=== PATIENT | male | born 1950 | race Caucasian/White ===

== ENCOUNTER 2022-05-13 14:28 | Inpatient (IN) ==
[2022-05-13] MEDS ORDERED: Al Hydrox/Mg Hydrox/Simet LIQ 30 ML UDC PO PRN (21:23)
[2022-05-14] MEDS: Carbidopa/Levodop 25/100 MG TAB PO SCH ×4 (01:11→16:05)
[2022-05-14 08:03] LABS: ABS Eosinophils 0.1 10^3/ul (0-0.6); ABS Lymphocytes 1.2 10^3/ul (1.0-4.8); ABS Monocytes 0.5 10^3/ul (0-0.8); ABS Neutrophils 3.2 10^3/ul (1.5-7.7); Eosinophil % 1.4 %; Hematocrit 44 % (42-52); Hemoglobin 14.6 g/dL (14.0-18.0); Lymphocyte % 24.3 %; Mean Corpuscular HGB Conc 33 g/dL (31-36); Mean Corpuscular Hemoglobin 31 pg (27-31); Mean Corpuscular Volume 93 fL (80-94); Mean Platelet Volume 8.2 fL (7.4-10.4); Platelet Count 204 10^3/uL (150-450); Red Blood Count 4.77 10^6 /uL (4.18-5.48); Red Cell Distribution Width 14 % (10-15)
[2022-05-14 08:36] LABS: Calcium 9.7 mg/dL (8.6-10.3); HDL Cholesterol 55.8 mg/dL; Potassium 3.8 mmol/L (3.5-5.0); eGFR CKD-EPI 65.3 (>60)
[2022-05-14 08:51] LABS: TSH Ultra Thyroid Stim Horm 6.29 mcIU/mL (0.34-5.60)
[2022-05-14] MEDS: PTO: Dorzolamide/Timolol OPTH (NF) 10 ML BOT BOTH EYES SCH ×2 (10:07→20:37)
[2022-05-14] MEDS: Vitamin THERAPEUTIC TAB PO SCH (10:11)
[2022-05-14] MEDS ORDERED: EYE BOTH EYES SCH (21:00)
[2022-05-14] MEDS ORDERED: LUMIGAN 0.01% BOTH EYES SCH (21:00)
[2022-05-15] MEDS: Carbidopa/Levodop 25/100 MG TAB PO SCH ×3 (07:30→16:26)
[2022-05-15] MEDS: Vitamin THERAPEUTIC TAB PO SCH (10:46)
[2022-05-15] MEDS: PTO: Dorzolamide/Timolol OPTH (NF) 10 ML BOT BOTH EYES SCH ×3 (11:57→20:53)
[2022-05-15] MEDS: EYE BOTH EYES SCH (13:15)
[2022-05-15] MEDS: LUMIGAN 0.01% BOTH EYES SCH (13:15)
[2022-05-16] MEDS: Carbidopa/Levodop 25/100 MG TAB PO SCH ×3 (07:49→16:33)
[2022-05-16] MEDS: Vitamin THERAPEUTIC TAB PO SCH (07:50)
[2022-05-16] MEDS: LUMIGAN 0.01% BOTH EYES SCH (07:50)
[2022-05-16] MEDS: EYE BOTH EYES SCH (07:50)
[2022-05-16] MEDS: PTO: Dorzolamide/Timolol OPTH (NF) 10 ML BOT BOTH EYES SCH ×2 (08:16→21:00)
[2022-05-17] MEDS: Carbidopa/Levodop 25/100 MG TAB PO SCH ×2 (07:02→11:59)
[2022-05-17] MEDS: EYE BOTH EYES SCH (07:04)
[2022-05-17] MEDS: LUMIGAN 0.01% BOTH EYES SCH (07:04)
[2022-05-17] MEDS: PTO: Dorzolamide/Timolol OPTH (NF) 10 ML BOT BOTH EYES SCH (07:18)
[2022-05-17] MEDS: Vitamin THERAPEUTIC TAB PO SCH (07:22)
[2022-05-17 11:01] VITALS: BP 117/62
== END 2022-05-17 13:15 | disposition home or self-care (01) | DRG 57 ==
LOC: ED 14:28 → BSU 21:35
PROVIDERS: ADMIT Emergency Medicine; ATTEND Psychiatry & Neurology Psychiatry

== ENCOUNTER 2022-09-07 21:14 | Inpatient (IN) ==
[2022-09-07 21:41] LABS: ABS Lymphocytes 0.5 10^3/ul (1.0-4.8); ABS Monocytes 0.5 10^3/ul (0-0.8); ABS Neutrophils 5.1 10^3/ul (1.5-7.7); Eosinophil % 0.4 %; Hematocrit 39 % (42-52); Hemoglobin 13.3 g/dL (14.0-18.0); Lymphocyte % 7.8 %; Mean Corpuscular HGB Conc 34 g/dL (31-36); Mean Corpuscular Hemoglobin 31 pg (27-31); Mean Corpuscular Volume 91 fL (80-94); Mean Platelet Volume 7.9 fL (7.4-10.4); Nucleated Red Blood Cells % 0.1; Platelet Count 187 10^3/uL (150-450); Red Blood Count 4.34 10^6 /uL (4.18-5.48); Red Cell Distribution Width 13 % (10-15); White Blood Count 6.2 10^3/uL (3.5-10.8)
[2022-09-07 22:13] LABS: ALT 17 U/L (7-52); AST 31 U/L (13-39); Albumin 3.6 g/dL (3.2-5.2); Albumin/Globulin Ratio 1.6 (1-3); Alkaline Phosphatase 50 U/L (35-149); Anion Gap 8 mmol/L (2-11); Blood Urea Nitrogen 37 mg/dL (6-24); CO2 Carbon Dioxide 29 mmol/L (22-32); Calcium 9.3 mg/dL (8.6-10.3); Chloride 105 mmol/L (101-111); Creatine Kinase 536 U/L (10-223); Creatinine, Serum 0.94 mg/dL (0.67-1.17); Globulin 2.3 g/dL (2-4); Glucose 99 mg/dL (70-100); Potassium 4.1 mmol/L (3.5-5.0); Sodium 142 mmol/L (135-145); Total Protein 5.9 g/dL (6.4-8.9); eGFR CKD-EPI 86.7 (>60)
[2022-09-07 22:59] LABS: Alcohol, S < 13 mg/dL (<13)
[2022-09-08] MEDS ORDERED: LORazepam 2 mg VIAL 1 ml IM ONE (02:12)
[2022-09-08] MEDS ORDERED: Lorazepam PYXIS KEY PRN (02:12)
[2022-09-08] MEDS ORDERED: LORazepam 2 mg VIAL 1 ml ONE (02:15)
[2022-09-08 09:48] LABS: ABS Lymphocytes 0.4 10^3/ul (1.0-4.8); ABS Monocytes 0.5 10^3/ul (0-0.8); ABS Neutrophils 3.9 10^3/ul (1.5-7.7); Eosinophil % 0.2 %; Hematocrit 40 % (42-52); Hemoglobin 12.9 g/dL (14.0-18.0); Lymphocyte % 8.2 %; Mean Corpuscular HGB Conc 33 g/dL (31-36); Mean Corpuscular Hemoglobin 30 pg (27-31); Mean Corpuscular Volume 92 fL (80-94); Mean Platelet Volume 7.7 fL (7.4-10.4); Platelet Count 180 10^3/uL (150-450); Red Blood Count 4.31 10^6 /uL (4.18-5.48); Red Cell Distribution Width 13 % (10-15); White Blood Count 4.9 10^3/uL (3.5-10.8)
[2022-09-08 10:28] LABS: Albumin 3.6 g/dL (3.2-5.2); Albumin/Globulin Ratio 1.8 (1-3); Calcium 8.9 mg/dL (8.6-10.3); Creatinine, Serum 0.88 mg/dL (0.67-1.17); Total Protein 5.6 g/dL (6.4-8.9); eGFR CKD-EPI 91.9 (>60)
[2022-09-08 11:16] LABS: Urine Appearance Clear; Urine Bilirubin Negative (Negative); Urine Blood 1+ (Negative); Urine Color Yellow; Urine Glucose Negative (Negative); Urine Ketones 1+ (Negative); Urine Nitrite Negative (Negative); Urine Protein Negative (Negative); Urine Specific Gravity 1.019 (1.002-1.030); Urine Urobilinogen Negative (Negative)
[2022-09-08 11:23] LABS: Urine Bacteria Absent (Absent); Urine Red Blood Cell 2+(6-10/hpf) (Absent); Urine White Blood Cell Trace(0-5/hpf) (Absent)
[2022-09-08] MEDS ORDERED: Lactated Ringers 1000 ml BAG 1,000 ML IV ONE (11:29)
[2022-09-08 11:59] LABS: Urine Benzodiazepine Screen None Detected (None Detect); Urine Cannabinoids Screen None Detected (None Detect); Urine Opiates Screen None Detected (None Detect)
[2022-09-08] MEDS ORDERED: Carbidopa/Levodop 25/100 MG TAB PO ONE (13:05)
[2022-09-08] MEDS ORDERED: Ondansetron 4 mg VIAL 2 MG/ML 2 ml VIAL IV PRN (15:55)
[2022-09-08] MEDS: Carbidopa/Levodop 25/100 MG TAB PO SCH (19:58)
[2022-09-08] MEDS ORDERED: Carbidopa/Levodop 25/100 MG TAB PO SCH (21:00)
[2022-09-08] MEDS: Heparin 5000 UNITS/ML 1 mL VIAL SUBCUT SCH (22:42)
[2022-09-09] MEDS ORDERED: Lorazepam PYXIS KEY PRN (06:07)
[2022-09-09] MEDS ORDERED: LORazepam 2 mg VIAL 1 ml IV PUSH ONE (06:07)
[2022-09-09] MEDS ORDERED: PIMAVANSERIN 34 MG PO SCH (09:00)
[2022-09-09] MEDS: Heparin 5000 UNITS/ML 1 mL VIAL SUBCUT SCH ×2 (10:11→21:26)
[2022-09-09] MEDS: Carbidopa/Levodop 25/100 MG TAB PO SCH ×3 (11:34→16:31)
[2022-09-10] MEDS: Carbidopa/Levodop 25/100 MG TAB PO SCH ×3 (07:13→17:04)
[2022-09-10] MEDS: Heparin 5000 UNITS/ML 1 mL VIAL SUBCUT SCH ×2 (10:20→21:39)
[2022-09-10] MEDS: PIMAVANSERIN 34 MG PO SCH (10:22)
[2022-09-10] MEDS: Latanoprost 0.005% 2.5 ml BTL BOTH EYES SCH (21:41)
[2022-09-11 07:35] LABS: Calcium 8.5 mg/dL (8.6-10.3); Creatinine, Serum 0.84 mg/dL (0.67-1.17); Potassium 3.5 mmol/L (3.5-5.0); eGFR CKD-EPI 93.2 (>60)
[2022-09-11] MEDS: Carbidopa/Levodop 25/100 MG TAB PO SCH ×3 (07:36→16:57)
[2022-09-11] MEDS: CMCS: Dorzolamide/Timolol OPTH (NF) 10 ML BOT BOTH EYES SCH (09:39)
[2022-09-11] MEDS: PIMAVANSERIN 34 MG PO SCH (09:39)
[2022-09-11] MEDS: Heparin 5000 UNITS/ML 1 mL VIAL SUBCUT SCH ×2 (09:39→19:49)
[2022-09-11] MEDS ORDERED: LORazepam 2 mg VIAL 1 ml IV PUSH ONE (14:22)
[2022-09-11] MEDS ORDERED: Lorazepam PYXIS KEY PRN (14:22)
[2022-09-11] MEDS: Latanoprost 0.005% 2.5 ml BTL BOTH EYES SCH (19:51)
[2022-09-12] MEDS: CMCS: Dorzolamide/Timolol OPTH (NF) 10 ML BOT BOTH EYES SCH (08:07)
[2022-09-12] MEDS: Carbidopa/Levodop 25/100 MG TAB PO SCH ×3 (08:07→16:08)
[2022-09-12] MEDS: PIMAVANSERIN 34 MG PO SCH (08:08)
[2022-09-12] MEDS: Heparin 5000 UNITS/ML 1 mL VIAL SUBCUT SCH ×2 (08:08→21:00)
[2022-09-12] MEDS ORDERED: NS 0.9% 1000 ml BAG 1,000 ML IV SCH (09:00)
[2022-09-12] MEDS ORDERED: Lorazepam PYXIS KEY PRN (20:55)
[2022-09-12] MEDS ORDERED: LORazepam 2 mg VIAL 1 ml IV PUSH PRN (20:55)
[2022-09-12] MEDS: Latanoprost 0.005% 2.5 ml BTL BOTH EYES SCH (21:00)
[2022-09-13] MEDS: Carbidopa/Levodop 25/100 MG TAB PO SCH ×3 (08:34→17:24)
[2022-09-13] MEDS: CMCS: Dorzolamide/Timolol OPTH (NF) 10 ML BOT BOTH EYES SCH (08:35)
[2022-09-13] MEDS: Heparin 5000 UNITS/ML 1 mL VIAL SUBCUT SCH ×2 (08:35→19:31)
[2022-09-13] MEDS: PIMAVANSERIN 34 MG PO SCH (08:35)
[2022-09-13 09:48] LABS: ABS Lymphocytes 0.5 10^3/ul (1.0-4.8); ABS Monocytes 0.5 10^3/ul (0-0.8); ABS Neutrophils 3.6 10^3/ul (1.5-7.7); Hematocrit 39 % (42-52); Hemoglobin 13.1 g/dL (14.0-18.0); Lymphocyte % 10.9 %; Mean Corpuscular HGB Conc 33 g/dL (31-36); Mean Corpuscular Hemoglobin 30 pg (27-31); Mean Corpuscular Volume 91 fL (80-94); Mean Platelet Volume 8.2 fL (7.4-10.4); Platelet Count 203 10^3/uL (150-450); Red Blood Count 4.32 10^6 /uL (4.18-5.48); Red Cell Distribution Width 14 % (10-15); White Blood Count 4.6 10^3/uL (3.5-10.8)
[2022-09-13 10:25] LABS: Calcium 8.7 mg/dL (8.6-10.3); Potassium 4.3 mmol/L (3.5-5.0); eGFR CKD-EPI 80.5 (>60)
[2022-09-14] MEDS: Latanoprost 0.005% 2.5 ml BTL BOTH EYES SCH ×2 (00:36→20:33)
[2022-09-14] MEDS: Carbidopa/Levodop 25/100 MG TAB PO SCH ×3 (08:25→17:39)
[2022-09-14] MEDS: CMCS: Dorzolamide/Timolol OPTH (NF) 10 ML BOT BOTH EYES SCH (08:26)
[2022-09-14] MEDS: Heparin 5000 UNITS/ML 1 mL VIAL SUBCUT SCH ×2 (08:26→20:33)
[2022-09-14] MEDS: PIMAVANSERIN 34 MG PO SCH (08:28)
[2022-09-14] MEDS ORDERED: LORazepam 2 mg VIAL 1 ml IV PUSH PRN (17:16)
[2022-09-15] MEDS: Heparin 5000 UNITS/ML 1 mL VIAL SUBCUT SCH ×3 (08:31→20:31)
[2022-09-15] MEDS: CMCS: Dorzolamide/Timolol OPTH (NF) 10 ML BOT BOTH EYES SCH ×3 (08:32→11:42)
[2022-09-15] MEDS: Carbidopa/Levodop 25/100 MG TAB PO SCH ×3 (08:33→18:05)
[2022-09-15] MEDS: PIMAVANSERIN 34 MG PO SCH (08:35)
[2022-09-15] MEDS: Latanoprost 0.005% 2.5 ml BTL BOTH EYES SCH (20:30)
[2022-09-16 01:09] LABS: Urine Appearance Clear; Urine Bilirubin Negative (Negative); Urine Blood 2+ (Negative); Urine Color Yellow; Urine Glucose Negative (Negative); Urine Ketones Negative (Negative); Urine Nitrite Negative (Negative); Urine Protein Negative (Negative); Urine Specific Gravity 1.016 (1.002-1.030); Urine Urobilinogen Negative (Negative)
[2022-09-16 01:49] LABS: Urine Bacteria Absent (Absent); Urine Red Blood Cell 3+(>10/hpf) (Absent); Urine White Blood Cell Trace(0-5/hpf) (Absent)
[2022-09-16] MEDS: Heparin 5000 UNITS/ML 1 mL VIAL SUBCUT SCH ×2 (09:07→20:41)
[2022-09-16] MEDS: Carbidopa/Levodop 25/100 MG TAB PO SCH ×3 (09:09→18:03)
[2022-09-16] MEDS: PIMAVANSERIN 34 MG PO SCH (09:11)
[2022-09-16] MEDS: CMCS: Dorzolamide/Timolol OPTH (NF) 10 ML BOT BOTH EYES SCH (09:11)
[2022-09-16] MEDS ORDERED: Magnesium Hydroxide LIQ 30 ML UDC PO PRN (10:00)
[2022-09-16] MEDS: Polyethylene Glycol 3350 17 GM PACKET PO SCH (10:30)
[2022-09-16] MEDS: Senna TAB 8.6 mg TAB PO SCH (20:37)
[2022-09-16] MEDS: Latanoprost 0.005% 2.5 ml BTL BOTH EYES SCH (20:43)
[2022-09-17 05:44] LABS: ABS Eosinophils 0.1 10^3/ul (0-0.6); ABS Lymphocytes 0.9 10^3/ul (1.0-4.8); ABS Monocytes 0.8 10^3/ul (0-0.8); ABS Neutrophils 4.5 10^3/ul (1.5-7.7); Eosinophil % 1.3 %; Hematocrit 41 % (42-52); Hemoglobin 13.3 g/dL (14.0-18.0); Lymphocyte % 13.9 %; Mean Corpuscular HGB Conc 33 g/dL (31-36); Mean Corpuscular Hemoglobin 30 pg (27-31); Mean Corpuscular Volume 92 fL (80-94); Mean Platelet Volume 8.2 fL (7.4-10.4); Platelet Count 242 10^3/uL (150-450); Red Blood Count 4.42 10^6 /uL (4.18-5.48); Red Cell Distribution Width 14 % (10-15); White Blood Count 6.2 10^3/uL (3.5-10.8)
[2022-09-17 06:11] LABS: Creatinine, Serum 0.82 mg/dL (0.67-1.17); Potassium 4.2 mmol/L (3.5-5.0); eGFR CKD-EPI 93.9 (>60)
[2022-09-17] MEDS: Heparin 5000 UNITS/ML 1 mL VIAL SUBCUT SCH ×2 (07:30→20:28)
[2022-09-17] MEDS: PIMAVANSERIN 34 MG PO SCH (07:30)
[2022-09-17] MEDS: CMCS: Dorzolamide/Timolol OPTH (NF) 10 ML BOT BOTH EYES SCH (07:30)
[2022-09-17] MEDS: Polyethylene Glycol 3350 17 GM PACKET PO SCH (07:30)
[2022-09-17] MEDS: Carbidopa/Levodop 25/100 MG TAB PO SCH ×3 (07:31→16:29)
[2022-09-17] MEDS: Latanoprost 0.005% 2.5 ml BTL BOTH EYES SCH (20:28)
[2022-09-17] MEDS: Senna TAB 8.6 mg TAB PO SCH (20:28)
[2022-09-18] MEDS: Polyethylene Glycol 3350 17 GM PACKET PO SCH (08:36)
[2022-09-18] MEDS: Carbidopa/Levodop 25/100 MG TAB PO SCH ×3 (08:36→16:43)
[2022-09-18] MEDS: PIMAVANSERIN 34 MG PO SCH (08:36)
[2022-09-18] MEDS: CMCS: Dorzolamide/Timolol OPTH (NF) 10 ML BOT BOTH EYES SCH (08:37)
[2022-09-18] MEDS: Heparin 5000 UNITS/ML 1 mL VIAL SUBCUT SCH ×2 (08:38→21:53)
[2022-09-18] MEDS: Senna TAB 8.6 mg TAB PO SCH (21:53)
[2022-09-18] MEDS: Latanoprost 0.005% 2.5 ml BTL BOTH EYES SCH (21:54)
[2022-09-19] MEDS: CMCS: Dorzolamide/Timolol OPTH (NF) 10 ML BOT BOTH EYES SCH (09:11)
[2022-09-19] MEDS: Polyethylene Glycol 3350 17 GM PACKET PO SCH (09:11)
[2022-09-19] MEDS: Carbidopa/Levodop 25/100 MG TAB PO SCH ×3 (09:12→17:36)
[2022-09-19] MEDS: PIMAVANSERIN 34 MG PO SCH (09:12)
[2022-09-19] MEDS: Heparin 5000 UNITS/ML 1 mL VIAL SUBCUT SCH ×2 (09:13→20:42)
[2022-09-19] MEDS: Senna TAB 8.6 mg TAB PO SCH (20:41)
[2022-09-19] MEDS: Latanoprost 0.005% 2.5 ml BTL BOTH EYES SCH (20:42)
[2022-09-20] MEDS: Heparin 5000 UNITS/ML 1 mL VIAL SUBCUT SCH ×2 (08:01→20:35)
[2022-09-20] MEDS: CMCS: Dorzolamide/Timolol OPTH (NF) 10 ML BOT BOTH EYES SCH (08:01)
[2022-09-20] MEDS: Carbidopa/Levodop 25/100 MG TAB PO SCH ×3 (08:01→16:51)
[2022-09-20] MEDS: PIMAVANSERIN 34 MG PO SCH (08:02)
[2022-09-20] MEDS: Polyethylene Glycol 3350 17 GM PACKET PO SCH (08:09)
[2022-09-20] MEDS: Senna TAB 8.6 mg TAB PO SCH (20:35)
[2022-09-20] MEDS: Latanoprost 0.005% 2.5 ml BTL BOTH EYES SCH (20:49)
[2022-09-21] MEDS: Polyethylene Glycol 3350 17 GM PACKET PO SCH ×2 (07:58→18:55)
[2022-09-21] MEDS: CMCS: Dorzolamide/Timolol OPTH (NF) 10 ML BOT BOTH EYES SCH (07:58)
[2022-09-21] MEDS: PIMAVANSERIN 34 MG PO SCH (07:58)
[2022-09-21] MEDS: Heparin 5000 UNITS/ML 1 mL VIAL SUBCUT SCH ×2 (07:58→22:23)
[2022-09-21] MEDS: Carbidopa/Levodop 25/100 MG TAB PO SCH ×3 (07:58→16:54)
[2022-09-21 19:33] LABS: ABS Eosinophils 0.1 10^3/ul (0-0.6); ABS Lymphocytes 0.9 10^3/ul (1.0-4.8); ABS Monocytes 0.7 10^3/ul (0-0.8); ABS Neutrophils 5.9 10^3/ul (1.5-7.7); Hematocrit 40 % (42-52); Hemoglobin 13.1 g/dL (14.0-18.0); Lymphocyte % 11.6 %; Mean Corpuscular HGB Conc 33 g/dL (31-36); Mean Corpuscular Hemoglobin 30 pg (27-31); Mean Corpuscular Volume 93 fL (80-94); Mean Platelet Volume 7.5 fL (7.4-10.4); Nucleated Red Blood Cells % 0.1; Platelet Count 278 10^3/uL (150-450); Red Blood Count 4.31 10^6 /uL (4.18-5.48); Red Cell Distribution Width 15 % (10-15); White Blood Count 7.6 10^3/uL (3.5-10.8)
[2022-09-21 19:37] LABS: INR 1.06 (0.88-1.18)
[2022-09-21 20:01] LABS: ALT 8 U/L (7-52); Albumin 3.5 g/dL (3.2-5.2); Albumin/Globulin Ratio 1.6 (1-3); Alkaline Phosphatase 51 U/L (35-149); Blood Urea Nitrogen 30 mg/dL (6-24); CO2 Carbon Dioxide 32 mmol/L (22-32); Calcium 8.9 mg/dL (8.6-10.3); Chloride 103 mmol/L (101-111); Creatinine, Serum 0.77 mg/dL (0.67-1.17); Globulin 2.2 g/dL (2-4); Glucose 91 mg/dL (70-100); Sodium 137 mmol/L (135-145); Total Protein 5.7 g/dL (6.4-8.9); eGFR CKD-EPI 95.7 (>60)
[2022-09-21 20:06] LABS: Anion Gap 2 mmol/L (2-11)
[2022-09-21 20:18] LABS: Potassium Redraw 4.4 mmol/L (3.5-5.0)
[2022-09-21] MEDS: Latanoprost 0.005% 2.5 ml BTL BOTH EYES SCH (22:23)
[2022-09-21] MEDS: Senna TAB 8.6 mg TAB PO SCH (22:23)
[2022-09-22] MEDS: Heparin 5000 UNITS/ML 1 mL VIAL SUBCUT SCH ×2 (07:56→20:28)
[2022-09-22] MEDS: CMCS: Dorzolamide/Timolol OPTH (NF) 10 ML BOT BOTH EYES SCH (07:56)
[2022-09-22] MEDS: PIMAVANSERIN 34 MG PO SCH (07:56)
[2022-09-22] MEDS: Carbidopa/Levodop 25/100 MG TAB PO SCH ×3 (07:56→16:48)
[2022-09-22] MEDS: Polyethylene Glycol 3350 17 GM PACKET PO SCH (07:57)
[2022-09-22] MEDS: Senna TAB 8.6 mg TAB PO SCH (20:29)
[2022-09-22] MEDS: Latanoprost 0.005% 2.5 ml BTL BOTH EYES SCH (20:33)
[2022-09-23] MEDS: Carbidopa/Levodop 25/100 MG TAB PO SCH ×3 (08:07→16:19)
[2022-09-23] MEDS: Polyethylene Glycol 3350 17 GM PACKET PO SCH (08:07)
[2022-09-23] MEDS: Heparin 5000 UNITS/ML 1 mL VIAL SUBCUT SCH ×2 (08:07→19:59)
[2022-09-23] MEDS: CMCS: Dorzolamide/Timolol OPTH (NF) 10 ML BOT BOTH EYES SCH (08:08)
[2022-09-23] MEDS: PIMAVANSERIN 34 MG PO SCH (08:09)
[2022-09-23] MEDS: Senna TAB 8.6 mg TAB PO SCH (19:59)
[2022-09-23] MEDS: Latanoprost 0.005% 2.5 ml BTL BOTH EYES SCH (20:02)
[2022-09-24] MEDS: Carbidopa/Levodop 25/100 MG TAB PO SCH ×3 (07:53→17:19)
[2022-09-24] MEDS: PIMAVANSERIN 34 MG PO SCH (09:10)
[2022-09-24] MEDS: Heparin 5000 UNITS/ML 1 mL VIAL SUBCUT SCH ×2 (09:11→19:38)
[2022-09-24] MEDS: CMCS: Dorzolamide/Timolol OPTH (NF) 10 ML BOT BOTH EYES SCH (09:13)
[2022-09-24] MEDS: Polyethylene Glycol 3350 17 GM PACKET PO SCH (09:16)
[2022-09-24] MEDS: Senna TAB 8.6 mg TAB PO SCH (19:35)
[2022-09-24] MEDS: Latanoprost 0.005% 2.5 ml BTL BOTH EYES SCH (19:37)
[2022-09-25] MEDS: Carbidopa/Levodop 25/100 MG TAB PO SCH ×3 (07:48→17:12)
[2022-09-25] MEDS: Polyethylene Glycol 3350 17 GM PACKET PO SCH (07:48)
[2022-09-25] MEDS: CMCS: Dorzolamide/Timolol OPTH (NF) 10 ML BOT BOTH EYES SCH (07:48)
[2022-09-25] MEDS: Heparin 5000 UNITS/ML 1 mL VIAL SUBCUT SCH ×2 (07:48→19:59)
[2022-09-25] MEDS: PIMAVANSERIN 34 MG PO SCH (07:48)
[2022-09-25] MEDS: Senna TAB 8.6 mg TAB PO SCH (19:59)
[2022-09-25] MEDS: Latanoprost 0.005% 2.5 ml BTL BOTH EYES SCH (19:59)
[2022-09-26] MEDS: PIMAVANSERIN 34 MG PO SCH (07:49)
[2022-09-26] MEDS: Polyethylene Glycol 3350 17 GM PACKET PO SCH (07:50)
[2022-09-26] MEDS: Carbidopa/Levodop 25/100 MG TAB PO SCH ×3 (07:50→16:28)
[2022-09-26] MEDS: CMCS: Dorzolamide/Timolol OPTH (NF) 10 ML BOT BOTH EYES SCH (07:53)
[2022-09-26] MEDS: Heparin 5000 UNITS/ML 1 mL VIAL SUBCUT SCH ×2 (07:54→20:30)
[2022-09-26] MEDS: Senna TAB 8.6 mg TAB PO SCH (20:27)
[2022-09-26] MEDS: Latanoprost 0.005% 2.5 ml BTL BOTH EYES SCH (20:29)
[2022-09-27] MEDS: Carbidopa/Levodop 25/100 MG TAB PO SCH ×3 (07:25→17:12)
[2022-09-27] MEDS: Polyethylene Glycol 3350 17 GM PACKET PO SCH (07:45)
[2022-09-27] MEDS: PIMAVANSERIN 34 MG PO SCH (07:45)
[2022-09-27] MEDS: Heparin 5000 UNITS/ML 1 mL VIAL SUBCUT SCH ×2 (07:46→20:49)
[2022-09-27] MEDS: CMCS: Dorzolamide/Timolol OPTH (NF) 10 ML BOT BOTH EYES SCH (07:47)
[2022-09-27] MEDS: Latanoprost 0.005% 2.5 ml BTL BOTH EYES SCH (20:49)
[2022-09-27] MEDS: Senna TAB 8.6 mg TAB PO SCH (20:49)
[2022-09-28] MEDS: Carbidopa/Levodop 25/100 MG TAB PO SCH ×3 (07:50→16:45)
[2022-09-28] MEDS: Polyethylene Glycol 3350 17 GM PACKET PO SCH (08:40)
[2022-09-28] MEDS: PIMAVANSERIN 34 MG PO SCH (08:41)
[2022-09-28] MEDS: Heparin 5000 UNITS/ML 1 mL VIAL SUBCUT SCH ×2 (08:41→22:30)
[2022-09-28] MEDS: CMCS: Dorzolamide/Timolol OPTH (NF) 10 ML BOT BOTH EYES SCH (08:41)
[2022-09-28] MEDS: Senna TAB 8.6 mg TAB PO SCH (22:28)
[2022-09-28] MEDS: Latanoprost 0.005% 2.5 ml BTL BOTH EYES SCH (22:31)
[2022-09-29] MEDS: Carbidopa/Levodop 25/100 MG TAB PO SCH ×2 (08:23→11:35)
[2022-09-29] MEDS: Heparin 5000 UNITS/ML 1 mL VIAL SUBCUT SCH (09:38)
[2022-09-29] MEDS: CMCS: Dorzolamide/Timolol OPTH (NF) 10 ML BOT BOTH EYES SCH (09:39)
[2022-09-29] MEDS: PIMAVANSERIN 34 MG PO SCH (09:39)
[2022-09-29] MEDS: Polyethylene Glycol 3350 17 GM PACKET PO SCH (09:40)
[2022-09-29] MEDS ORDERED: Fluticasone NASAL SPRAY 50MCG 16 gm SPRAY BTL BOTH NARES SCH (10:00)
[2022-09-29 15:25] VITALS: BP 107/70
== END 2022-09-29 15:24 | disposition swing bed (61) | DRG 57 ==
LOC: EDHOLD 21:14 → ED 21:14 → MED 09-08 19:55 → SUATTDRO 09-09 10:37
PROVIDERS: ADMIT Student in an Organized Health Care Education/Training Program; ATTEND Internal Medicine

== ENCOUNTER 2022-09-29 16:01 | Inpatient (IN) ==
[2022-09-29] MEDS ORDERED: Magnesium Hydroxide LIQ 30 ML UDC PO PRN (16:25)
[2022-09-29] MEDS: Heparin 5000 UNITS/ML 1 mL VIAL SUBCUT SCH (17:24)
[2022-09-29] MEDS: Carbidopa/Levodop 25/100 MG TAB PO SCH (17:24)
[2022-09-29] MEDS: BIMATOPROST 0.01% BOTH EYES SCH (19:59)
[2022-09-29] MEDS: Carbamide Peroxide 6.5% OTIC 15 ML BTL BOTH EARS SCH (20:03)
[2022-09-29] MEDS: Senna TAB 8.6 mg TAB PO SCH (20:04)
[2022-09-30] MEDS: Heparin 5000 UNITS/ML 1 mL VIAL SUBCUT SCH ×4 (00:15→21:19)
[2022-09-30] MEDS: Carbidopa/Levodop 25/100 MG TAB PO SCH ×3 (07:50→17:11)
[2022-09-30] MEDS ORDERED: Fluticasone NASAL SPRAY 50MCG 16 gm SPRAY BTL BOTH NARES SCH (09:00)
[2022-09-30] MEDS: CMCS:Dorzolamide/Timolol OPTH (NF) 10 ML BOT BOTH EYES SCH (09:13)
[2022-09-30] MEDS: Polyethylene Glycol 3350 17 GM PACKET PO SCH (09:18)
[2022-09-30] MEDS: PIMAVANSERIN 34 MG PO SCH (09:31)
[2022-09-30] MEDS: Carbamide Peroxide 6.5% OTIC 15 ML BTL BOTH EARS SCH (09:41)
[2022-09-30] MEDS: BIMATOPROST 0.01% BOTH EYES SCH (20:24)
[2022-09-30] MEDS: Senna TAB 8.6 mg TAB PO SCH (20:25)
[2022-10-01] MEDS: Heparin 5000 UNITS/ML 1 mL VIAL SUBCUT SCH ×3 (05:52→21:01)
[2022-10-01] MEDS: Carbidopa/Levodop 25/100 MG TAB PO SCH ×3 (08:14→16:52)
[2022-10-01] MEDS: Polyethylene Glycol 3350 17 GM PACKET PO SCH (08:14)
[2022-10-01] MEDS: CMCS:Dorzolamide/Timolol OPTH (NF) 10 ML BOT BOTH EYES SCH (08:16)
[2022-10-01] MEDS: PIMAVANSERIN 34 MG PO SCH (08:17)
[2022-10-01] MEDS: Senna TAB 8.6 mg TAB PO SCH (21:01)
[2022-10-01] MEDS: BIMATOPROST 0.01% BOTH EYES SCH (21:01)
[2022-10-02] MEDS: Heparin 5000 UNITS/ML 1 mL VIAL SUBCUT SCH ×3 (05:24→21:06)
[2022-10-02] MEDS: Polyethylene Glycol 3350 17 GM PACKET PO SCH (08:10)
[2022-10-02] MEDS: Carbidopa/Levodop 25/100 MG TAB PO SCH ×3 (08:10→16:10)
[2022-10-02] MEDS: CMCS:Dorzolamide/Timolol OPTH (NF) 10 ML BOT BOTH EYES SCH (08:13)
[2022-10-02] MEDS: PIMAVANSERIN 34 MG PO SCH (08:19)
[2022-10-02] MEDS: BIMATOPROST 0.01% BOTH EYES SCH (21:05)
[2022-10-02] MEDS: Senna TAB 8.6 mg TAB PO SCH (21:12)
[2022-10-03] MEDS: Heparin 5000 UNITS/ML 1 mL VIAL SUBCUT SCH ×3 (06:09→21:15)
[2022-10-03] MEDS: Carbidopa/Levodop 25/100 MG TAB PO SCH ×3 (07:57→16:30)
[2022-10-03] MEDS: CMCS:Dorzolamide/Timolol OPTH (NF) 10 ML BOT BOTH EYES SCH (09:31)
[2022-10-03] MEDS: PIMAVANSERIN 34 MG PO SCH (09:31)
[2022-10-03] MEDS: Polyethylene Glycol 3350 17 GM PACKET PO SCH (09:31)
[2022-10-03] MEDS: BIMATOPROST 0.01% BOTH EYES SCH (21:14)
[2022-10-03] MEDS: Senna TAB 8.6 mg TAB PO SCH (21:15)
[2022-10-04] MEDS: Heparin 5000 UNITS/ML 1 mL VIAL SUBCUT SCH ×3 (05:53→20:48)
[2022-10-04] MEDS: Carbidopa/Levodop 25/100 MG TAB PO SCH ×3 (07:55→16:37)
[2022-10-04] MEDS: PIMAVANSERIN 34 MG PO SCH (07:56)
[2022-10-04] MEDS: CMCS:Dorzolamide/Timolol OPTH (NF) 10 ML BOT BOTH EYES SCH (08:00)
[2022-10-04] MEDS: Polyethylene Glycol 3350 17 GM PACKET PO SCH (08:06)
[2022-10-04] MEDS: Senna TAB 8.6 mg TAB PO SCH (20:47)
[2022-10-04] MEDS: BIMATOPROST 0.01% BOTH EYES SCH (20:51)
[2022-10-05] MEDS: Heparin 5000 UNITS/ML 1 mL VIAL SUBCUT SCH ×3 (05:55→21:48)
[2022-10-05] MEDS: Carbidopa/Levodop 25/100 MG TAB PO SCH ×3 (07:43→16:35)
[2022-10-05] MEDS: Polyethylene Glycol 3350 17 GM PACKET PO SCH (10:25)
[2022-10-05] MEDS: CMCS:Dorzolamide/Timolol OPTH (NF) 10 ML BOT BOTH EYES SCH (10:26)
[2022-10-05] MEDS: PIMAVANSERIN 34 MG PO SCH (10:26)
[2022-10-05] MEDS: Senna TAB 8.6 mg TAB PO SCH (21:47)
[2022-10-05] MEDS: BIMATOPROST 0.01% BOTH EYES SCH (21:48)
[2022-10-06] MEDS: Heparin 5000 UNITS/ML 1 mL VIAL SUBCUT SCH ×3 (06:10→20:41)
[2022-10-06] MEDS: Carbidopa/Levodop 25/100 MG TAB PO SCH ×3 (07:38→16:51)
[2022-10-06] MEDS: PIMAVANSERIN 34 MG PO SCH (09:23)
[2022-10-06] MEDS: CMCS:Dorzolamide/Timolol OPTH (NF) 10 ML BOT BOTH EYES SCH (09:23)
[2022-10-06] MEDS: Polyethylene Glycol 3350 17 GM PACKET PO SCH ×2 (09:23→12:04)
[2022-10-06] MEDS: Senna TAB 8.6 mg TAB PO SCH (20:41)
[2022-10-06] MEDS: BIMATOPROST 0.01% BOTH EYES SCH (20:51)
[2022-10-07] MEDS: Heparin 5000 UNITS/ML 1 mL VIAL SUBCUT SCH ×3 (05:27→20:21)
[2022-10-07] MEDS: PIMAVANSERIN 34 MG PO SCH (07:50)
[2022-10-07] MEDS: Carbidopa/Levodop 25/100 MG TAB PO SCH ×3 (07:50→17:45)
[2022-10-07] MEDS: Polyethylene Glycol 3350 17 GM PACKET PO SCH (07:51)
[2022-10-07] MEDS: CMCS:Dorzolamide/Timolol OPTH (NF) 10 ML BOT BOTH EYES SCH (07:51)
[2022-10-07] MEDS: Senna TAB 8.6 mg TAB PO SCH (20:20)
[2022-10-07] MEDS: BIMATOPROST 0.01% BOTH EYES SCH (20:23)
[2022-10-08] MEDS: Heparin 5000 UNITS/ML 1 mL VIAL SUBCUT SCH ×3 (05:50→21:11)
[2022-10-08] MEDS: Carbidopa/Levodop 25/100 MG TAB PO SCH ×3 (08:39→15:41)
[2022-10-08] MEDS: CMCS:Dorzolamide/Timolol OPTH (NF) 10 ML BOT BOTH EYES SCH (08:40)
[2022-10-08] MEDS: PIMAVANSERIN 34 MG PO SCH (08:40)
[2022-10-08] MEDS: Polyethylene Glycol 3350 17 GM PACKET PO SCH (08:40)
[2022-10-08] MEDS: Senna TAB 8.6 mg TAB PO SCH (21:10)
[2022-10-08] MEDS: BIMATOPROST 0.01% BOTH EYES SCH (21:10)
[2022-10-09] MEDS: Heparin 5000 UNITS/ML 1 mL VIAL SUBCUT SCH ×3 (06:13→21:41)
[2022-10-09] MEDS: PIMAVANSERIN 34 MG PO SCH (09:08)
[2022-10-09] MEDS: Carbidopa/Levodop 25/100 MG TAB PO SCH ×3 (09:08→17:50)
[2022-10-09] MEDS: Polyethylene Glycol 3350 17 GM PACKET PO SCH (09:08)
[2022-10-09] MEDS: CMCS:Dorzolamide/Timolol OPTH (NF) 10 ML BOT BOTH EYES SCH (09:09)
[2022-10-09] MEDS: BIMATOPROST 0.01% BOTH EYES SCH (21:39)
[2022-10-09] MEDS: Senna TAB 8.6 mg TAB PO SCH (21:40)
[2022-10-10] MEDS: Heparin 5000 UNITS/ML 1 mL VIAL SUBCUT SCH ×3 (06:07→21:00)
[2022-10-10] MEDS: PIMAVANSERIN 34 MG PO SCH (08:21)
[2022-10-10] MEDS: Carbidopa/Levodop 25/100 MG TAB PO SCH ×3 (08:21→17:09)
[2022-10-10] MEDS: CMCS:Dorzolamide/Timolol OPTH (NF) 10 ML BOT BOTH EYES SCH (08:22)
[2022-10-10] MEDS: Polyethylene Glycol 3350 17 GM PACKET PO SCH (08:22)
[2022-10-10] MEDS: BIMATOPROST 0.01% BOTH EYES SCH (21:00)
[2022-10-10] MEDS: Senna TAB 8.6 mg TAB PO SCH (21:00)
[2022-10-11] MEDS: Heparin 5000 UNITS/ML 1 mL VIAL SUBCUT SCH ×3 (05:54→21:55)
[2022-10-11] MEDS: Carbidopa/Levodop 25/100 MG TAB PO SCH ×3 (08:01→16:29)
[2022-10-11] MEDS: Polyethylene Glycol 3350 17 GM PACKET PO SCH (08:01)
[2022-10-11] MEDS: PIMAVANSERIN 34 MG PO SCH (08:02)
[2022-10-11] MEDS: CMCS:Dorzolamide/Timolol OPTH (NF) 10 ML BOT BOTH EYES SCH (08:02)
[2022-10-11] MEDS: Senna TAB 8.6 mg TAB PO SCH (21:56)
[2022-10-11] MEDS: BIMATOPROST 0.01% BOTH EYES SCH (21:57)
[2022-10-12] MEDS: Heparin 5000 UNITS/ML 1 mL VIAL SUBCUT SCH ×3 (05:08→21:30)
[2022-10-12] MEDS: PIMAVANSERIN 34 MG PO SCH (08:18)
[2022-10-12] MEDS: CMCS:Dorzolamide/Timolol OPTH (NF) 10 ML BOT BOTH EYES SCH (08:19)
[2022-10-12] MEDS: Carbidopa/Levodop 25/100 MG TAB PO SCH ×3 (08:19→17:33)
[2022-10-12] MEDS: Polyethylene Glycol 3350 17 GM PACKET PO SCH (08:19)
[2022-10-12] MEDS: BIMATOPROST 0.01% BOTH EYES SCH (21:29)
[2022-10-12] MEDS: Senna TAB 8.6 mg TAB PO SCH (21:29)
[2022-10-13] MEDS: Heparin 5000 UNITS/ML 1 mL VIAL SUBCUT SCH ×3 (06:28→20:44)
[2022-10-13] MEDS: Polyethylene Glycol 3350 17 GM PACKET PO SCH (08:41)
[2022-10-13] MEDS: Carbidopa/Levodop 25/100 MG TAB PO SCH ×3 (08:41→17:34)
[2022-10-13] MEDS: PIMAVANSERIN 34 MG PO SCH (08:45)
[2022-10-13] MEDS: CMCS:Dorzolamide/Timolol OPTH (NF) 10 ML BOT BOTH EYES SCH (08:45)
[2022-10-13] MEDS: BIMATOPROST 0.01% BOTH EYES SCH (20:44)
[2022-10-13] MEDS: Senna TAB 8.6 mg TAB PO SCH (20:44)
[2022-10-14] MEDS: Heparin 5000 UNITS/ML 1 mL VIAL SUBCUT SCH ×2 (06:08→17:12)
[2022-10-14] MEDS: Carbidopa/Levodop 25/100 MG TAB PO SCH ×3 (07:39→18:13)
[2022-10-14] MEDS: PIMAVANSERIN 34 MG PO SCH (07:40)
[2022-10-14] MEDS: Polyethylene Glycol 3350 17 GM PACKET PO SCH (07:40)
[2022-10-14] MEDS: CMCS:Dorzolamide/Timolol OPTH (NF) 10 ML BOT BOTH EYES SCH (07:41)
[2022-10-14] MEDS: Enoxaparin 40 MG/0.4 ML SYR SUBCUT SCH (18:13)
[2022-10-14] MEDS: BIMATOPROST 0.01% BOTH EYES SCH (20:45)
[2022-10-14] MEDS: Senna TAB 8.6 mg TAB PO SCH (20:45)
[2022-10-15] MEDS: Carbidopa/Levodop 25/100 MG TAB PO SCH ×3 (09:28→18:19)
[2022-10-15] MEDS: CMCS:Dorzolamide/Timolol OPTH (NF) 10 ML BOT BOTH EYES SCH (09:29)
[2022-10-15] MEDS: PIMAVANSERIN 34 MG PO SCH (09:29)
[2022-10-15] MEDS: Polyethylene Glycol 3350 17 GM PACKET PO SCH (09:29)
[2022-10-15] MEDS: Enoxaparin 40 MG/0.4 ML SYR SUBCUT SCH (18:19)
[2022-10-15] MEDS: BIMATOPROST 0.01% BOTH EYES SCH (21:07)
[2022-10-15] MEDS: Senna TAB 8.6 mg TAB PO SCH (21:07)
[2022-10-16] MEDS: Polyethylene Glycol 3350 17 GM PACKET PO SCH (07:50)
[2022-10-16] MEDS: PIMAVANSERIN 34 MG PO SCH (07:50)
[2022-10-16] MEDS: Carbidopa/Levodop 25/100 MG TAB PO SCH ×3 (07:51→16:43)
[2022-10-16] MEDS: CMCS:Dorzolamide/Timolol OPTH (NF) 10 ML BOT BOTH EYES SCH (07:52)
[2022-10-16] MEDS: Enoxaparin 40 MG/0.4 ML SYR SUBCUT SCH (16:42)
[2022-10-16] MEDS: BIMATOPROST 0.01% BOTH EYES SCH (21:05)
[2022-10-16] MEDS: Senna TAB 8.6 mg TAB PO SCH (21:06)
[2022-10-17] MEDS: Polyethylene Glycol 3350 17 GM PACKET PO SCH (08:01)
[2022-10-17] MEDS: Carbidopa/Levodop 25/100 MG TAB PO SCH ×3 (08:01→16:57)
[2022-10-17] MEDS: PIMAVANSERIN 34 MG PO SCH (08:01)
[2022-10-17] MEDS: CMCS:Dorzolamide/Timolol OPTH (NF) 10 ML BOT BOTH EYES SCH (08:01)
[2022-10-17] MEDS: Enoxaparin 40 MG/0.4 ML SYR SUBCUT SCH (16:57)
[2022-10-17] MEDS: Senna TAB 8.6 mg TAB PO SCH (19:31)
[2022-10-17] MEDS: BIMATOPROST 0.01% BOTH EYES SCH (19:31)
[2022-10-18] MEDS: Carbidopa/Levodop 25/100 MG TAB PO SCH ×3 (08:46→17:48)
[2022-10-18] MEDS: PIMAVANSERIN 34 MG PO SCH (08:46)
[2022-10-18] MEDS: Polyethylene Glycol 3350 17 GM PACKET PO SCH (08:47)
[2022-10-18] MEDS: CMCS:Dorzolamide/Timolol OPTH (NF) 10 ML BOT BOTH EYES SCH (08:47)
[2022-10-18] MEDS: Enoxaparin 40 MG/0.4 ML SYR SUBCUT SCH (17:47)
[2022-10-18] MEDS: Senna TAB 8.6 mg TAB PO SCH (20:20)
[2022-10-18] MEDS: BIMATOPROST 0.01% BOTH EYES SCH (20:20)
[2022-10-19] MEDS: Polyethylene Glycol 3350 17 GM PACKET PO SCH (08:05)
[2022-10-19] MEDS: PIMAVANSERIN 34 MG PO SCH (08:06)
[2022-10-19] MEDS: Carbidopa/Levodop 25/100 MG TAB PO SCH ×3 (08:06→17:25)
[2022-10-19] MEDS: CMCS:Dorzolamide/Timolol OPTH (NF) 10 ML BOT BOTH EYES SCH (08:08)
[2022-10-19] MEDS: Enoxaparin 40 MG/0.4 ML SYR SUBCUT SCH (17:24)
[2022-10-19] MEDS: Senna TAB 8.6 mg TAB PO SCH (21:07)
[2022-10-19] MEDS: BIMATOPROST 0.01% BOTH EYES SCH (21:10)
[2022-10-20] MEDS: Carbidopa/Levodop 25/100 MG TAB PO SCH ×3 (08:17→16:56)
[2022-10-20] MEDS: PIMAVANSERIN 34 MG PO SCH (08:17)
[2022-10-20] MEDS: Polyethylene Glycol 3350 17 GM PACKET PO SCH (08:18)
[2022-10-20] MEDS: CMCS:Dorzolamide/Timolol OPTH (NF) 10 ML BOT BOTH EYES SCH (08:19)
[2022-10-20] MEDS: Enoxaparin 40 MG/0.4 ML SYR SUBCUT SCH (16:56)
[2022-10-20] MEDS: Senna TAB 8.6 mg TAB PO SCH (19:34)
[2022-10-20] MEDS: BIMATOPROST 0.01% BOTH EYES SCH (19:36)
[2022-10-21] MEDS: PIMAVANSERIN 34 MG PO SCH (08:32)
[2022-10-21] MEDS: Carbidopa/Levodop 25/100 MG TAB PO SCH ×3 (08:33→17:08)
[2022-10-21] MEDS: CMCS:Dorzolamide/Timolol OPTH (NF) 10 ML BOT BOTH EYES SCH (08:34)
[2022-10-21] MEDS: Polyethylene Glycol 3350 17 GM PACKET PO SCH (08:34)
[2022-10-21 12:19] LABS: Urine Appearance Cloudy; Urine Bilirubin Negative (Negative); Urine Blood Negative (Negative); Urine Color Yellow; Urine Glucose Negative (Negative); Urine Ketones Trace (Negative); Urine Nitrite Negative (Negative); Urine Protein Negative (Negative); Urine Specific Gravity 1.013 (1.002-1.030); Urine Urobilinogen Negative (Negative)
[2022-10-21 12:21] LABS: Urine Amorphous Crystals Present (Absent); Urine Bacteria Absent (Absent); Urine Red Blood Cell Absent (Absent); Urine White Blood Cell 1+(6-10/hpf) (Absent)
[2022-10-21] MEDS: Enoxaparin 40 MG/0.4 ML SYR SUBCUT SCH (17:08)
[2022-10-21] MEDS: Senna TAB 8.6 mg TAB PO SCH (20:17)
[2022-10-21] MEDS: BIMATOPROST 0.01% BOTH EYES SCH (20:18)
[2022-10-22] MEDS: Carbidopa/Levodop 25/100 MG TAB PO SCH ×3 (08:29→17:19)
[2022-10-22] MEDS: PIMAVANSERIN 34 MG PO SCH (08:30)
[2022-10-22] MEDS: Polyethylene Glycol 3350 17 GM PACKET PO SCH (08:30)
[2022-10-22] MEDS: CMCS:Dorzolamide/Timolol OPTH (NF) 10 ML BOT BOTH EYES SCH (08:32)
[2022-10-22] MEDS: Enoxaparin 40 MG/0.4 ML SYR SUBCUT SCH (17:19)
[2022-10-22 18:03] VITALS: BP 121/76
[2022-10-22] MEDS: BIMATOPROST 0.01% BOTH EYES SCH (19:29)
[2022-10-22] MEDS: Senna TAB 8.6 mg TAB PO SCH (19:36)
== END 2022-10-22 21:10 | disposition home or self-care (01) | DRG 57 ==
LOC: MED 16:01 → SUATTDRO 16:01
PROVIDERS: ADMIT Internal Medicine; ATTEND Internal Medicine

== ENCOUNTER 2024-05-04 14:36 | Inpatient (IN) ==
[2024-05-04 15:51] LABS: ABS Lymphocytes 0.6 10^3/uL (1.0-4.8); ABS Monocytes 1.1 10^3/uL (0.0-1.1); ABS Neutrophils 4.3 10^3/uL (1.5-7.6); Eosinophil % 0.5 %; Hemoglobin 12.8 g/dL (13.2-16.3); Lymphocyte % 9.7 %; Mean Corpuscular Hemoglobin 30.1 pg (27-33); Mean Corpuscular Hgb Conc 33.7 g/dL (31-36); Mean Corpuscular Volume 89.4 fL (80-97); Platelet Count 185 10^3/uL (150-450); Red Blood Count 4.25 10^6/uL (4.06-5.63); Red Cell Distribution Width 14.5 % (12-17); White Blood Count 6.1 10^3/uL (3.6-10.2)
[2024-05-04 15:59] LABS: Activated Partial Thrombo Time 32.3 seconds (26.0-38.0); INR 1.24 (0.85-1.14)
[2024-05-04 16:20] LABS: Albumin 3.7 g/dL (3.2-5.2); Albumin/Globulin Ratio 1.6 (1-3); C Reactive Protein 65.2 mg/L (<8.01); Calcium 8.6 mg/dL (8.6-10.3); Creatinine, Serum 0.98 mg/dL (0.67-1.17); Globulin 2.3 g/dL (2-4); Potassium 4.1 mmol/L (3.5-5.0); Total Bilirubin 0.4 mg/dL (0.2-1.0); eGFR CKD-EPI 81.4 (>60)
[2024-05-04] MEDS: Acetaminophen IV 1 GM/100ML 1,000 MG/100 ML BAG IV ONE (17:35)
[2024-05-04 17:44] LABS: High Sensitivity Troponin 1 Hr 8 pg/mL (<20)
[2024-05-04 18:59] LABS: Urine Appearance Clear; Urine Bilirubin Negative (Negative); Urine Blood Negative (Negative); Urine Color Yellow; Urine Glucose Negative (Negative); Urine Ketones Trace (Negative); Urine Nitrite Negative (Negative); Urine Protein Trace (Negative); Urine Specific Gravity 1.024 (1.002-1.030); Urine Urobilinogen Negative (Negative); Urine pH 5.5 (5.0-8.0)
[2024-05-04] MEDS ORDERED: ceFAZolin 1 GM in Dextrose 1 GM/50 ML BAG IVPB SCH (22:00)
[2024-05-04] MEDS: Enoxaparin 40 MG/0.4 ML SYR SUBCUT SCH (22:03)
[2024-05-04] MEDS: ceFAZolin 2 GM PREMIX 2 GM/50 ML BAG IV SCH (22:41)
[2024-05-05] MEDS: Acetaminophen IV 1 GM/100ML 1,000 MG/100 ML BAG IV SCH (01:23)
[2024-05-05 05:19] LABS: ABS Lymphocytes 0.9 10^3/uL (1.0-4.8); ABS Neutrophils 3.9 10^3/uL (1.5-7.6); ABS Nucleated RBC 0.01 10^3/ul; Eosinophil % 0.7 %; Hematocrit 38.5 % (38-53); Lymphocyte % 14.9 %; Mean Corpuscular Hgb Conc 33.7 g/dL (31-36); Mean Platelet Volume 7.7 fL (7.5-11.2); Nucleated Red Blood Cells % 0.1 %/100WBC (0.0-0.8); Platelet Count 187 10^3/uL (150-450); Red Blood Count 4.33 10^6/uL (4.06-5.63); Red Cell Distribution Width 14.8 % (12-17); White Blood Count 5.9 10^3/uL (3.6-10.2)
[2024-05-05 06:14] LABS: Calcium 8.4 mg/dL (8.6-10.3); Creatinine, Serum 0.91 mg/dL (0.67-1.17); Magnesium 1.9 mg/dL (1.9-2.7); Potassium 3.9 mmol/L (3.5-5.0)
[2024-05-05] MEDS ORDERED: Carbidopa/Levodop 25/100 MG TAB PO SCH (07:30)
[2024-05-05] MEDS: Carbidopa/Levodop 25/100 MG TAB PO SCH (08:39)
[2024-05-05] MEDS: CMCS: Dorzolamide/Timolol OPTH (NF) 10 ML BOT BOTH EYES SCH (08:41)
[2024-05-05] MEDS: PIMAVANSERIN 34 MG PO SCH (09:37)
[2024-05-05] MEDS: Amantadine SOLN ORALSYR 10 mg/ml PO SCH (10:56)
[2024-05-05] MEDS: Latanoprost 0.005% 2.5 ml BTL BOTH EYES SCH (21:37)
[2024-05-06] MEDS: ceFAZolin 2 GM PREMIX 2 GM/50 ML BAG IV SCH (14:05)
[2024-05-09] MEDS: Pimavanserin [Nuplazid] 34 mg capsule PO SCH (14:44)
[2024-05-09] MEDS: Senna TAB 8.6 mg TAB PO SCH (14:48)
[2024-05-10] MEDS ORDERED: guaiFENesin 100 mg/5 ml LIQ unit dose cup PO PRN (15:57)
[2024-05-12] MEDS ORDERED: Lorazepam PYXIS KEY PRN (03:32)
[2024-05-12] MEDS: LORazepam 2 mg VIAL 1 ml ONE (03:49)
[2024-05-12] MEDS: LORazepam 2 mg VIAL 1 ml IV PUSH PRN (03:55)
[2024-05-13 10:21] LABS: ABS Eosinophils 0.2 10^3/uL (0.0-0.5); ABS Lymphocytes 1.1 10^3/uL (1.0-4.8); ABS Monocytes 0.7 10^3/uL (0.0-1.1); ABS Neutrophils 6.1 10^3/uL (1.5-7.6); Eosinophil % 2.6 %; Hematocrit 43.8 % (38-53); Lymphocyte % 13.1 %; Mean Corpuscular Hemoglobin 30.2 pg (27-33); Mean Corpuscular Hgb Conc 34.3 g/dL (31-36); Mean Corpuscular Volume 88.2 fL (80-97); Mean Platelet Volume 7.6 fL (7.5-11.2); Platelet Count 301 10^3/uL (150-450); Red Blood Count 4.97 10^6/uL (4.06-5.63); Red Cell Distribution Width 14.5 % (12-17); White Blood Count 8.2 10^3/uL (3.6-10.2)
[2024-05-13 10:40] LABS: Calcium 9.2 mg/dL (8.6-10.3); Creatinine, Serum 0.81 mg/dL (0.67-1.17); Potassium 4.3 mmol/L (3.5-5.0); eGFR CKD-EPI 93.1 (>60)
[2024-05-14 11:32] VITALS: BP 109/65
== END 2024-05-14 14:10 | DRG 177 ==
LOC: ED 14:36 → EDHOLD 14:36 → SUATTDRO 21:10 → MEDTELE 05-06 11:02
PROVIDERS: ADMIT Internal Medicine; ATTEND Internal Medicine

== ENCOUNTER 2024-06-15 13:46 | Observation (INO) ==
[2024-06-15 16:04] LABS: ABS Eosinophils 0.2 10^3/uL (0.0-0.5); ABS Lymphocytes 1.3 10^3/uL (1.0-4.8); ABS Monocytes 0.8 10^3/uL (0.0-1.1); ABS Neutrophils 5.3 10^3/uL (1.5-7.6); ABS Nucleated RBC 0.01 10^3/ul; Eosinophil % 2.6 %; Hemoglobin 13.5 g/dL (13.2-16.3); Mean Corpuscular Hemoglobin 30.3 pg (27-33); Mean Corpuscular Hgb Conc 33.8 g/dL (31-36); Mean Corpuscular Volume 89.5 fL (80-97); Nucleated Red Blood Cells % 0.1 %/100WBC (0.0-0.8); Platelet Count 238 10^3/uL (150-450); Red Blood Count 4.47 10^6/uL (4.06-5.63); Red Cell Distribution Width 15.9 % (12-17); White Blood Count 7.6 10^3/uL (3.6-10.2)
[2024-06-15 16:37] LABS: Albumin/Globulin Ratio 1.6 (1-3); C Reactive Protein 3.94 mg/L (<8.01); Calcium 9.1 mg/dL (8.6-10.3); Creatinine, Serum 0.94 mg/dL (0.67-1.17); Globulin 2.5 g/dL (2-4); Potassium 4.2 mmol/L (3.5-5.0); Total Bilirubin 0.4 mg/dL (0.2-1.0); Total Protein 6.5 g/dL (6.4-8.9); eGFR CKD-EPI 85.6 (>60)
[2024-06-15 17:19] LABS: High Sensitivity Troponin 1 Hr 4 pg/mL (<20)
[2024-06-15 22:14] LABS: Urine Appearance Clear; Urine Bilirubin Negative (Negative); Urine Blood Negative (Negative); Urine Color Light-Yellow; Urine Glucose Negative (Negative); Urine Ketones Negative (Negative); Urine Nitrite Negative (Negative); Urine Protein Negative (Negative); Urine Specific Gravity 1.013 (1.002-1.030); Urine Urobilinogen Negative (Negative)
[2024-06-15 22:22] LABS: Urine Bacteria Absent /HPF (Absent); Urine Red Blood Cell 1+(3-5/hpf) /HPF (0-Trace); Urine White Blood Cell 1+(6-10/hpf) /HPF (0-Trace)
[2024-06-15 22:45] LABS: TSH Ultra Thyroid Stim Horm 2.57 mcIU/mL (0.34-5.60)
[2024-06-15 22:56] LABS: Folate 11.95 ng/mL (5.90-24.80)
[2024-06-15] MEDS: cefTRIAXone 1 gm/50 mL D5W 1 GM/50 ML BAG IV SCH (23:56)
[2024-06-15] MEDS: Enoxaparin 40 MG/0.4 ML SYR SUBCUT SCH (23:56)
[2024-06-16 06:35] LABS: Hemoglobin 12.8 g/dL (13.2-16.3); Mean Corpuscular Hemoglobin 30.3 pg (27-33); Mean Corpuscular Hgb Conc 33.8 g/dL (31-36); Mean Corpuscular Volume 89.5 fL (80-97); Mean Platelet Volume 7.5 fL (7.5-11.2); Platelet Count 208 10^3/uL (150-450); Red Blood Count 4.25 10^6/uL (4.06-5.63); Red Cell Distribution Width 15.9 % (12-17); White Blood Count 4.9 10^3/uL (3.6-10.2)
[2024-06-16 06:54] LABS: Urine Benzodiazepine Screen None Detected (None Detect); Urine Cannabinoids Screen None Detected (None Detect); Urine Opiates Screen None Detected (None Detect)
[2024-06-16 07:16] LABS: Calcium 8.4 mg/dL (8.6-10.3); Creatinine, Serum 0.81 mg/dL (0.67-1.17); Magnesium 1.9 mg/dL (1.9-2.7); Potassium 4.2 mmol/L (3.5-5.0); eGFR CKD-EPI 93.1 (>60)
[2024-06-16] MEDS: Carbidopa/Levodop 25/100 MG TAB PO SCH (11:12)
[2024-06-16] MEDS: Amantadine SOLN ORALSYR 10 mg/ml PO SCH (11:13)
[2024-06-16] MEDS: CMCS: Dorzolamide/Timolol OPTH (NF) 10 ML BOT BOTH EYES SCH (11:13)
[2024-06-16] MEDS: Senna TAB 8.6 mg TAB PO SCH (11:13)
[2024-06-16] MEDS: Latanoprost 0.005% 2.5 ml BTL BOTH EYES SCH (22:27)
[2024-06-16] MEDS: cefTRIAXone 1 gm/50 mL D5W 1 GM/50 ML BAG IV SCH (23:47)
[2024-06-17 14:44] VITALS: BP 130/77
== END 2024-06-17 16:15 | disposition home or self-care (01) ==
LOC: EDHOLD 13:46 → ED 13:46 → MED 06-16 13:23
PROVIDERS: ADMIT Student in an Organized Health Care Education/Training Program; ATTEND Internal Medicine